=== PATIENT | female | born 1955 ===

== ENCOUNTER 2017-11-07 05:56 | Day surgery (SDC) | payer MEDICARE, OTHER ==
[2017-10-31 09:08] VITALS: BMI 30.1
[2017-11-07] MEDS ORDERED: ceFAZolin IV 1 gm in Dextrose 1 GM/50 ML BAG IVPB ONE ×2 (06:55→07:01)
[2017-11-07] MEDS ORDERED: Bupivacaine-Epi 0.5%-1:200,000 PF Inj ONE (06:55)
[2017-11-07] MEDS ORDERED: Lidocaine/Epinephrine 1% 1:100000 10 ML IJ ONE (06:55)
[2017-11-07] MEDS ORDERED: Lidocaine Hydrochloride 10 ML INJ ONE (06:56)
[2017-11-07] MEDS ORDERED: Midazolam 2 MG/2 ML VIAL ONE (07:53)
[2017-11-07] MEDS ORDERED: Propofol 10 mg/ml Inj (20 ML) ONE (07:53)
--- NOTE | 2017-11-07 08:31 | PCM.SURG1 ---
Surgeon's Initial Post Op Note - Surgeon's Notes Surgeon: yudith Assembly Line Leader: 0 Type of Anesthesia: IV Sedation Anesthesia Administered By: lalito Pre-Operative Diagnosis: ganglion cyst right elbow Operative Findings: 2 ccm lesion conmsistent with ganglion Post-Operative Diagnosis: same Operation Performed: excision ganglion cyst right elbow Specimen/Specimens Removed: cyst Estimated Blood Loss: EBL {In ML}: 5 Blood Products Given: N/A Drains Used: No Drains Post-Op Condition: Good Date of Surgery/Procedure: 11/07/17 Time of Surgery/Procedure: 08:31
[2017-11-07 12:00] VITALS: BP 140/80; PULSE 69; RESP 17; TEMP 97.8; O2SAT 99
--- NOTE | 2017-11-07 19:10 | OP ---
PROCEDURE DATE: 11/07/2017 PREOPERATIVE DIAGNOSIS: Ganglion cyst, right elbow. POSTOPERATIVE DIAGNOSIS: Ganglion cyst, right elbow. PROCEDURE CARRIED OUT: Excision of 2 cm ganglion cyst, right elbow. SURGEON: Gato Dubois Jr., MD ASSISTANTS: None. ANESTHESIOLOGIST: Dr. Barrera. ANESTHESIA: Local sedation. INDICATIONS: A 61-year-old woman with a large cyst, right elbow, painful, consistent with a ganglion cyst. OPERATIVE FINDINGS: The lesion was removed. After this had been done, the wound was approximated, closed with 5-0 nylon sutures, and a mildly compressive dressing applied. Blood loss for the procedure was 5 mL. OPERATION CARRIED OUT: Excision of ganglion cyst, right elbow. Gato Dubois Jr., MD
== END 2017-11-07 09:59 | disposition home or self-care (01) ==
LOC: C.SDS 05:56
PROVIDERS: ATTEND Surgery Vascular Surgery
DX: M67.421 Ganglion, right elbow (principal)
CPT/HCPCS: 24073; 82948; 88305; J0690; J2250; J2704